=== PATIENT | male | born 1985 | race Caucasian/White ===

== ENCOUNTER → 2017-05-30 | Outpatient (CLI) | payer BC ==
[~2017-05-30] MED LIST: CEPH500C PO; REVIEWED
[2017-05-30 10:42] LABS: BASO % 0.2 %; BASO ABS # 0.01 K/uL (0-0.2); COMPLETE YES; EOS % 7.1 %; HEMATOCRIT 42.4 % (42-52); IG% 0.2 %; LYMPH % 14.3 %; MEAN CELL VOLUME 88.9 fL (80-100); MEAN CORPUSCULAR HEMOGLOBIN 30.6 pg (25-34); MEAN CORPUSCULAR HGB CONC 34.4 g/dl (32-36); MEAN PLATELET VOLUME 9.3 fL (7.4-10.4); MONO % 11.2 %; PLATELET COUNT 166 K/uL (130-400); RED BLOOD COUNT 4.77 M/uL (4.7-6.1)
[2017-05-30 11:15] LABS: ALT/SGPT 16 U/L (12-78); AST/SGOT 7 U/L (15-37); BLOOD UREA NITROGEN 14 mg/dl (7-18); BUN/CREATININE RATIO 18.5 (10-20); CALCIUM 8.9 mg/dl (8.5-10.1); CARBON DIOXIDE 31 mmol/L (21-32); CHLORIDE 105 mmol/L (98-107); CREATININE 0.78 mg/dl (0.60-1.40); GLUCOSE 74 mg/dl (70-99); POTASSIUM 4.4 mmol/L (3.5-5.1); SODIUM 140 mmol/L (136-145)
[2017-05-30 11:17] LABS: ALB/GLOB RATIO 1.2 (0.9-2); ALKALINE PHOSPHATASE 63 U/L (45-117); CHOLESTEROL 113 mg/dl (0-200); CHOLESTEROL/HDL RATIO 2.1; HDL CHOLESTEROL 53 mg/dl; LDL CHOLESTEROL CALCULATED 43 mg/dl; TRIGLYCERIDES 83 mg/dl (0-150); VERY LOW DENSITY LIPOPROT CALC 17 mg/dl
[2017-05-30 13:32] LABS: URINE APPEARANCE CLEAR (CLEAR); URINE BILIRUBIN NEG (NEG); URINE COLOR DK YELLOW; URINE NITRITE NEG (NEG); URINE PH 5.5 (4.5-7.5); URINE SPECIFIC GRAVITY 1.033 (1.000-1.030); UROBILINOGEN NEG (NEG); ZZUR CULT IF INDIC CLEAN CATCH NO
[2017-05-30 13:35] LABS: MANUAL MICROSCOPIC REQUIRED? NO; REVIEW REQ? NO
== END | disposition home or self-care (01) ==
LOC: C.LAB1850 10:08
PROVIDERS: ATTEND Nurse Practitioner Adult Health
DX: Z00.00 Encounter for general adult medical examination without abnormal findings (principal); R73.09 Other abnormal glucose; E55.9 Vitamin D deficiency, unspecified; D51.9 Vitamin B12 deficiency anemia, unspecified; R53.83 Other fatigue; M25.50 Pain in unspecified joint; R10.32 Left lower quadrant pain

== ENCOUNTER 2018-06-27 22:55 | Emergency (ER) | payer BC ==
[~2018-06-27] VITALS: Ht 185.4 cm; Wt 75.3 kg
[2018-06-27 22:57] VITALS: Ht 185.4 cm; Wt 75.3 kg
[2018-06-27] MEDS ORDERED: ONDANSETRON INJ 2 MG/ML 2 ML VIAL IV STA (23:13)
[2018-06-27] MEDS ORDERED: SODIUM CHLORIDE 0.9% 1000ML 1,000 ML IV STA (23:13)
--- NOTE | 2018-06-27 23:21 | EMERGENCY ROOM VISIT NOTE ---
History Report prepared by Yolanda: Velasquez Bassett Under the Supervision of: Dr. Tracy Silveira D.O. First contact with patient: 23:00 Chief Complaint: SHORTNESS OF BREATH Stated Complaint: SOB,FREEZING, THROWING UP, WEAK History of Present Illness The patient is a 33 year old male who presents to the Emergency Room with complaints of constant SOB beginning 2-3 days ago. Per mother, the patient has been having abdominal pain, nausea, vomiting, chills, and an occasional runny nose for the last few days. The patient states that his abdominal pain is constant and feels like a "knot." He notes that he has occasional shaking chills and feels as though his "heart is cold." He reports that he has also been having a normal bowel movement each time after he eats. The patient states that he feels as though he is dehydrated. He notes that his SOB makes him feel as though he cannot get enough air. He reports that he has been taking hot showers with no relief of his symptoms. He denies any blood in his vomit, blood in his bowels, CP, cough, and sore throat. The patient's mother states that the patient has been having similar episodes for the last ten years and she notes that he typically gets these episodes 2-3 times a year. She reports that the patient started having these episodes ten years ago after an episode of heavy drinking. The patient denies any known sick contacts, exposure to chemicals, and recent heavy drinking. He notes that he does not have any medical problems and does not take any medication regularly. He reports that he does not have a history of pneumonia, bronchitis, and heart problems. The patient states that he does not smoke cigarettes but he notes that he occasionally snorted cocaine 10-15 years ago. No IVDA. He notes that he occasionally uses marijuana. Source of History: patient, parent Onset: 2-3 days ago Position: chest Quality: other (SOB) Timing: constant Associated Symptoms: + chills, + nausea, + vomiting, + abdominal pain, No sorethroat, No cough, No chest pain Note: The patient also complains of an occasional runny nose and the need to have a bowel movement every time after he eats. He denies any blood in his vomit and blood in his bowels. Review of Systems See HPI for pertinent positives & negatives. A total of 10 systems reviewed and were otherwise negative. Past Medical & Surgical Medical Problems: (1) Back pain Family History Diabetes mellitus FHx: cancer Gallbladder disease Heart disease Hypertension Kidney disease Kidney stones Lung disease Social History Smoking Status: Current Every Day Smoker Alcohol Use: none Drug Use: marijuana Marital Status: Housing Status: lives with family Occupation Status: employed Current/Historical Medications No Active Prescriptions or Reported Meds Allergies Coded Allergies: No Known Allergies (Verified , 06/28/18) Physical Exam Vital Signs Date Time Temp Pulse Resp B/P (MAP) Pulse Ox O2 Delivery O2 Flow Rate FiO2 06/28/18 04:06 88 18 153/83 98 Room Air 06/28/18 03:36 37.1 67 18 145/93 97 Room Air 06/28/18 03:24 80 17 153/87 98 Room Air 06/28/18 02:45 61 18 147/92 99 Room Air 06/28/18 01:28 87 18 159/81 100 Room Air 06/28/18 00:32 65 18 135/83 100 Nasal Cannula 2.0 06/28/18 00:23 66 06/27/18 23:26 108 06/27/18 23:23 95 18 139/84 98 Room Air 06/27/18 23:03 98 Room Air 06/27/18 22:57 36.7 91 24 159/100 100 Room Air Physical Exam GENERAL: alert, ill appearing, well nourished, no distress, non-toxic, lying left lateral recumbent with blanket pulled up over his head EYE EXAM: normal conjunctiva, PERRL and EOM's grossly intact OROPHARYNX: no exudate, no erythema, lips, buccal mucosa, and tongue normal and mucous membranes are moist NECK: supple, no nuchal rigidity, no adenopathy, non-tender LUNGS: Clear to auscultation. Normal chest wall mechanics. Tachypnea. Decreased breath sounds at the right base. HEART: no murmurs, S1 normal and S2 normal ABDOMEN: abdomen soft, non-tender, normo-active bowel sounds, no masses, no rebound or guarding. No pulsatile mass. BACK: Back is symmetrical on inspection and there is no deformity, no midline tenderness, no CVA tenderness. SKIN: no rashes and no bruising UPPER EXTREMITIES: upper extremities are grossly normal. Full range of motion, normal pulses. LOWER EXTREMITIES: No pitting edema. Full range of motion, normal pulses. NEURO EXAM: Normal sensorium, cranial nerves II-XII grossly intact, normal speech, no gross weakness of arms, no gross weakness of legs. Medical Decision & Procedures ER Provider Diagnostic Interpretation: Radiology results have been interpreted and reviewed by me. 2 VIEW CHEST X-RAY: No cardiomegaly, effusions, focal consolidation, widened mediastinum, pulmonary edema, and pneumothorax. Right nipple piercing noted. Radiology results have been interpreted by the radiologist and reviewed by me. CT ABDOMEN & PELVIS With Contrast: Appendix not identified. Questionable structure in the lower quadrant, either small bowel loop or small fluid or distended appendix. Repeat with adequate enteric contrast to opacify the right lower quadrant, can further assess as warranted. Otherwise correlate clinically for appendicitis. No colitis or bowel obstruction. No radiodense gallstones or pancreatitis. Kidneys within normal limits. Radiologist: Chas Gayle M.D. Laboratory Results 06/27/18 23:28 Red Blood Count 5.26, Mean Corpuscular Volume 86.3, Mean Corpuscular Hemoglobin 31.2, Mean Corpuscular Hemoglobin Concent 36.1, Mean Platelet Volume 9.8, Neutrophils (%) (Auto) 90.3, Lymphocytes (%) (Auto) 8.5, Monocytes (%) (Auto) 1.1, Eosinophils (%) (Auto) 0.0, Basophils (%) (Auto) 0.0, Neutrophils # (Auto) 7.21, Lymphocytes # (Auto) 0.68, Monocytes # (Auto) 0.09, Eosinophils # (Auto) 0.00, Basophils # (Auto) 0.00 06/27/18 23:28 Test 06/27/18 23:28 06/28/18 03:05 06/28/18 03:39 White Blood Count 7.99 K/uL (4.8-10.8) Red Blood Count 5.26 M/uL (4.7-6.1) Hemoglobin 16.4 g/dL (14.0-18.0) Hematocrit 45.4 % (42-52) Mean Corpuscular Volume 86.3 fL (80-100) Mean Corpuscular Hemoglobin 31.2 pg (25-34) Mean Corpuscular Hemoglobin Concent 36.1 g/dl (32-36) Platelet Count 241 K/uL (130-400) Mean Platelet Volume 9.8 fL (7.4-10.4) Neutrophils (%) (Auto) 90.3 % Lymphocytes (%) (Auto) 8.5 % Monocytes (%) (Auto) 1.1 % Eosinophils (%) (Auto) 0.0 % Basophils (%) (Auto) 0.0 % Neutrophils # (Auto) 7.21 K/uL (1.4-6.5) Lymphocytes # (Auto) 0.68 K/uL (1.2-3.4) Monocytes # (Auto) 0.09 K/uL (0.11-0.59) Eosinophils # (Auto) 0.00 K/uL (0-0.5) Basophils # (Auto) 0.00 K/uL (0-0.2) RDW Standard Deviation 40.7 fL (36.4-46.3) RDW Coefficient of Variation 12.8 % (11.5-14.5) Immature Granulocyte % (Auto) 0.1 % Immature Granulocyte # (Auto) 0.01 K/uL (0.00-0.02) Prothrombin Time 10.4 SECONDS (9.0-12.0) Prothromb Time International Ratio 1.0 (0.9-1.1) Anion Gap 12.0 mmol/L (3-11) Est Creatinine Clear Calc Drug Dose 101.7 ml/min Estimated GFR () 102.1 Estimated GFR (Non- 88.1 BUN/Creatinine Ratio 11.8 (10-20) Calcium Level 9.8 mg/dl (8.5-10.1) Magnesium Level 1.9 mg/dl (1.8-2.4) Total Bilirubin 0.9 mg/dl (0.2-1) Aspartate Amino Transf (AST/SGOT) 13 U/L (15-37) Alanine Aminotransferase (ALT/SGPT) 17 U/L (12-78) Alkaline Phosphatase 67 U/L (45-117) Troponin I < 0.015 ng/ml (0-0.045) Pro-B-Type Natriuretic Peptide 466 pg/ml (0-450) Total Protein 9.0 gm/dl (6.4-8.2) Albumin 4.9 gm/dl (3.4-5.0) Globulin 4.1 gm/dl (2.5-4.0) Albumin/Globulin Ratio 1.2 (0.9-2) Lipase 65 U/L (73-393) Thyroid Stimulating Hormone (TSH) 0.419 uIu/ml (0.300-4.500) Ethyl Alcohol mg/dL < 3.0 mg/dl (0-3) Lyme Disease IgG Antibody NEG (NEG) Lyme Disease IgM Antibody NEG (NEG) Urine Color YELLOW Urine Appearance CLEAR (CLEAR) Urine pH 7.0 (4.5-7.5) Urine Specific [place] <= 1.005 (1.000-1.030) Urine Protein NEG (NEG) Urine Glucose (UA) NEG (NEG) Urine Ketones 1+ (NEG) Urine Occult Blood 1+ (NEG) Urine Nitrite NEG (NEG) Urine Bilirubin NEG (NEG) Urine Urobilinogen NEG (NEG) Urine Leukocyte Esterase NEG (NEG) Urine RBC 0-4 /hpf (0-4) Urine WBC 1-5 /hpf (0-5) Urine Epithelial Cells 0-5 /lpf (0-5) Urine Bacteria NEG (NEG) Urine Opiates Screen NEG (NEG) Urine Methadone, Qualitative NEG (NEG) Urine Barbiturates NEG (NEG) Urine Phencyclidine (PCP) Level NEG (NEG) Ur Amphetamine/Methamphetamine NEG (NEG) MDMA (Ecstasy) Screen NEG (NEG) Urine Benzodiazepines Screen NEG (NEG) Urine Cocaine Metabolite NEG (NEG) Urine Marijuana (THC) POS (NEG) Bedside Lactic Acid Venous 1.10 mmol/L (0.90-1.70) Laboratory results per my review. Medications Administered Medications (Trade) Dose Ordered Sig/Dread Route Start Time Stop Time Status Last Admin Dose Admin Sodium Chloride 1,000 ml @ 999 mls/hr Q1H1M STAT IV 06/27/18 23:13 06/28/18 00:13 DC 06/27/18 23:32 999 MLS/HR Ondansetron HCl (Zofran Inj) 4 mg NOW STAT IV 06/27/18 23:13 06/27/18 23:16 DC 06/27/18 23:32 4 MG Sodium Chloride 1,000 ml @ 999 mls/hr Q1H1M STAT IV 06/28/18 00:56 06/28/18 01:56 DC 06/28/18 00:56 999 MLS/HR Ondansetron HCl (ZOFRAN ODT 4MG Home Pack) 1 homepack STK-MED ONCE .ROUTE 06/28/18 03:15 06/28/18 03:16 DC 06/28/18 03:21 1 HOMEPACK ECG Per My Interpretation Indication: SOB/dyspnea Rate (beats per minute): 80 Rhythm: sinus rhythm Findings: no acute ischemic change, no ectopy, other (Normal axis, normal intervals) ED Course 2304: The patient was evaluated in room B10. A complete history and physical exam was performed. 2313: Zofran Inj 4mg IV, Sodium Chloride 1000 ml @ 999 mls/hr IV 0056: Sodium Chloride 1000 ml @ 999 mls/hr IV 0202: I reevaluated and updated the patient. He feels better and denies having any difficulty breathing while in the emergency department tonight. A repeat abdominal examination shows that the patient's abdomen is soft and nontender. The patient tolerated ice chips and has fluids running. 0315: Ondansetron HCl 1 homepack SL 0319: I rechecked the patient. He states that he is feeling well and has been able to keep water down. He denies any difficulty breathing and abdominal pain. He ambulated to the bathroom with a steady gait and is now asking to go home. 0420: Upon reevaluation, the patient is feeling better. I discussed the findings and the treatment plan with the patient. He verbalizes agreement and understanding. The patient was discharged home. Medical Decision Differential diagnosis: Etiologies such as appendicitis, diverticulitis, PUD, biliary pathology, UTI, pancreatitis, obstruction, mesenteric ischemia, aortic pathology, infections, inflammatory bowel disease, renal colic, as well as others were entertained. Patient with atypical presentation, and no clear initial etiology. Patient with multiple similar prior episodes according to patient and mom at bedside. Patient's labs reassuring. Blood cultures drawn as a precaution due to patient' s complaint of chills. No regulars witnessed while here. Initial lactic acid mildly elevated, however improved with IV fluids. Given reported nausea vomiting, suspect this is more likely elevated from dehydration and less likely from bacteremia/sepsis. CT scan reassuring and patient had no abdominal pain on initial or subsequent repeat exams. I do not suspect occult appendicitis, perforation, volvulus, diverticulitis, mesenteric ischemia, GI bleed. Patient had no difficulty breathing while here, denies shortness of breath while here, mild tachypnea improved with rest and IV fluids. Feel this was more likely tachypnea related to anxiety given his condition. Patient denies any chest pain while here. No history of IV drug abuse. I do not suspect occult endocarditis. Symptoms and presentation is not consistent with pericarditis, pericardial effusion, meningitis/encephalitis. No evidence of acute pulmonary pathology. Patient able to tolerate p.o. here and reported feeling improved. Patient ambulatory with steady gait. Repeat lactic acid improved, vital signs remained stable throughout. I do not suspect occult vascular etiology. No evidence of bowel obstruction. No evidence of biliary colic. No clear etiology of patient's symptoms, I did discuss with him this may be viral in origin. Patient admits to only occasional use of marijuana, however depending on frequency of usage there could be a component of cannabis induced hyperemesis syndrome. Patient counseled against drug abuse and smoking. Discussed with patient symptoms to watch and return for, close follow-up with his family doctor, he verbalized understanding was agreeable with plan. Medication Reconcilliation Current Medication List: was personally reviewed by me Blood Pressure Screening Patient's blood pressure: Elevated blood pressure Blood pressure disposition: Elevated BP felt to be situational Impression Primary Impression: Nausea & vomiting Additional Impressions: Abdominal pain Tobacco abuse Marijuana use Scribe Attestation The scribe's documentation has been prepared under my direction and personally reviewed by me in its entirety. I confirm that the note above accurately reflects all work, treatment, procedures, and medical decision making performed by me. Departure Information Dispostion Home / Self-Care Prescriptions No Active Prescriptions or Reported Meds Referrals No Doctor, Assigned (PCP) Forms HOME CARE DOCUMENTATION FORM, IMPORTANT VISIT INFORMATION Patient Instructions My [facility] Additional Instructions Please call and follow-up with your family doctor in 2-3 days. You may use the nausea medication as prescribed. Please sip clear liquids at frequent intervals to stay well-hydrated. You may not have a normal appetite for several days, drinking fluids is more important than eating solids. If you have any recurrent pain, recurrent vomiting, noticed diarrhea, black or bloody stools, fevers or chills, trouble breathing, chest pain, you have any other new concerns, please return to the ER. Problem Qualifiers Primary Impression: Nausea & vomiting Vomiting type: unspecified Vomiting Intractability: non-intractable Qualified Codes: R11.2 - Nausea with vomiting, unspecified Additional Impressions: Abdominal pain Abdominal location: generalized Qualified Codes: R10.84 - Generalized abdominal pain
[2018-06-27] MEDS ORDERED: OPTIRAY 320 IV PRN (23:30)
[2018-06-27 23:40] LABS: HEMATOCRIT 45.4 % (42-52); HEMOGLOBIN 16.4 g/dL (14.0-18.0); IG# 0.01 K/uL (0.00-0.02); LYMPH % 8.5 %; LYMPH ABS # 0.68 K/uL (1.2-3.4); MEAN CELL VOLUME 86.3 fL (80-100); MEAN CORPUSCULAR HEMOGLOBIN 31.2 pg (25-34); MEAN CORPUSCULAR HGB CONC 36.1 g/dl (32-36); MEAN PLATELET VOLUME 9.8 fL (7.4-10.4); MONO % 1.1 %; MONO ABS # 0.09 K/uL (0.11-0.59); NEUT % 90.3 %; NEUT ABS # 7.21 K/uL (1.4-6.5); PLATELET COUNT 241 K/uL (130-400); RED CELL DISTRIBUTION WIDTH CV 12.8 % (11.5-14.5); RED CELL DISTRIBUTION WIDTH SD 40.7 fL (36.4-46.3); WHITE BLOOD COUNT 7.99 K/uL (4.8-10.8)
[2018-06-28 00:09] LABS: ALBUMIN 4.9 gm/dl (3.4-5.0); ALKALINE PHOSPHATASE 67 U/L (45-117); ALT/SGPT 17 U/L (12-78); AST/SGOT 13 U/L (15-37); BLOOD UREA NITROGEN 13 mg/dl (7-18); CALCIUM 9.8 mg/dl (8.5-10.1); CARBON DIOXIDE 22 mmol/L (21-32); CREATININE 1.09 mg/dl (0.60-1.40); GLUCOSE 156 mg/dl (70-99); LIPASE 65 U/L (73-393); POTASSIUM 3.9 mmol/L (3.5-5.1); SODIUM 137 mmol/L (136-145)
[2018-06-28] MEDS ORDERED: SODIUM CHLORIDE 0.9% 1000ML 1,000 ML IV STA (00:56)
[2018-06-28] MEDS ORDERED: ONDANSETRON HOME PACK 4MG OD TAB ONE (03:15)
[2018-06-28 03:36] VITALS: TEMP 37.1
[2018-06-28 04:06] VITALS: BP 153/83; PULSE 88; O2SAT 98
--- NOTE | 2018-06-28 07:10 | DIAGNOSTIC IMAGING REPORT ---
ABD/PELVIS IV CONTRAST ONLY CLINICAL HISTORY: 33 years-old Male presenting with abd pain, n/v, f/c. TECHNIQUE: Multidetector CT of the abdomen and pelvis was performed after the administration of intravenous contrast. IV contrast: 94 mL of Optiray 320. A dose lowering technique was used consistent with the principles of ALARA (as low as reasonably achievable). COMPARISON: Plain radiograph of the abdomen from 2014. CT DOSE (mGy.cm): The estimated cumulative dose is 451.18 mGycm. FINDINGS: Motion artifact mildly degrades image quality negatively affecting diagnostic sensitivity the exam. [employer] Tax [employer] topogram: Unremarkable. Lung bases: Lungs and pleural spaces clear. Normal heart size. No pericardial or pleural effusion. Liver: Normal morphology. No liver lesion. Patent hepatic vasculature. Biliary: No intrahepatic or extrahepatic biliary ductal dilatation. Normal gallbladder. Pancreas: Normal. Spleen: Normal. Adrenal glands: Normal. Kidneys and ureters: Normal. No hydronephrosis. Bladder: Normal. Pelvic organs: The prostate is enlarged. Seminal vesicles also appear distended. Bowel: The most likely candidate for the appendix is located in the right iliac fossa and is mildly dilated measuring 8 mm in diameter (series 3 image 267). No significant periappendiceal inflammatory change or associated fluid. No bowel obstruction. No gross evidence of wall thickening of the large or small bowel. Peritoneal cavity: No free fluid or intraperitoneal gas. Lymph nodes: No enlarged lymph nodes in the abdomen or pelvis. Vasculature: Aorta and IVC patent and normal in caliber. Abdominal wall: Normal. Musculoskeletal: Normal. IMPRESSION: 1. Motion artifact mildly degrades image quality negatively affecting the diagnostic sensitivity the exam. Allowing for this and the result in difficulty in identifying confidently and characterizing the appendix, the appendix appears mildly dilated, although there is no overwhelming evidence of periappendiceal inflammatory change or fluid in the right lower quadrant. The location of the appendix in the right iliac fossa would be amenable to ultrasound follow-up. 2. Apparent prostatic enlargement. Correlate with urinalysis and digital rectal exam to exclude prostatitis. Electronically signed by: Mynor Larkin M.D. 06/28/2018 7:08 AM Dictated Date/Time: 06/28/2018 6:58 AM
--- NOTE | 2018-06-28 08:09 | DIAGNOSTIC IMAGING REPORT ---
CHEST 2 VIEWS ROUTINE HISTORY: Short of breath. COMPARISON: Chest 12/14/2013. FINDINGS: The lungs are clear. Cardiac silhouette is normal in size. No pleural effusions. No pneumothorax. IMPRESSION: No acute process. Electronically signed by: Yakov Tapia M.D. 06/28/2018 8:07 AM Dictated Date/Time: 06/28/2018 8:05 AM
--- NOTE | 2018-07-03 06:44 | EDITING REQUIRED CODING QUERY ---
CODING QUERY To promote full compliance with coding requirements relating to patient care, provider participation is requested in all cases of hcc coders uncertainty. Please assist us with the question(s) below: Coding Question(s): The HPI states that the patient does not smoke cigarettes but the Social History states he is an everyday smoker and Tobacco Abuse is listed as a diagnosis under the Impression. Please clarify documentation. Physician's Response(s): That was an error. I made an addendum to the chart. He is an everyday smoker. Thank you Maryanne Belcher Principal Diagnosis: "_that condition established after study, to be chiefly responsible for occasioning the admission of the patient to the hospital for care." Co-Existing Principal Diagnosis: "_when two or more diagnoses equally meet the criteria for principal diagnosis as determined by the circumstances of admission, diagnostic work up, and/or therapy provided, and the Alphabetic Index, Tabular List, or another coding guideline does not provide sequencing direction, any one of the diagnoses may be sequenced first." "When the physician has documented what appears to be a current diagnosis in the body of the record, but has not included the diagnosis in the final diagnostic statement, the physician should be asked whether the diagnosis should be added." (Source Coding [facility] 2 QTR90. p3-4)
--- NOTE | 2018-07-03 18:53 | Pharmacy Progress Note ---
ED Pharmacist Culture FollowUp Date of Service: Jul 03, 2018. 1 of 2 BLCXs is growing gram positive bacilli. Pt states he is feeling well and that his symptoms resolved after ~ 24 hours. He denies abd pain, NV, fever and chills. Reviewed case w/ Dr Sanchez. This cx is likely contaminated. Will continue to monitor cx results but no immediate action required.
--- NOTE | 2018-07-06 12:55 | Pharmacy Progress Note ---
ED Pharmacist Culture FollowUp Date of Service: Jul 06, 2018. 1 of 2 BLCXs is growing gram positive bacilli - contacted lab as final ID still pending. Aicha in [facility] stated the organism has not yet been ID'd but currently resembles propionibacterium (which would likely represent a skin malachi contaminant). No action required at this time. On 07/03/18: Pt states he is feeling well and that his symptoms resolved after ~ 24 hours. He denies abd pain, NV, fever and chills. Reviewed case w/ Dr Sanchez. This cx is likely contaminated. Will continue to monitor cx results but no immediate action required.
== END 2018-06-28 04:30 | disposition home or self-care (01) ==
LOC: C.EDB 22:56
DX: R11.2 Nausea with vomiting, unspecified (principal); R10.9 Unspecified abdominal pain; F12.90 Cannabis use, unspecified, uncomplicated; F17.200 Nicotine dependence, unspecified, uncomplicated; R03.0 Elevated blood-pressure reading, without diagnosis of hypertension; R68.83 Chills (without fever); E86.0 Dehydration; R06.82 Tachypnea, not elsewhere classified; R74.0 Nonspecific elevation of levels of transaminase and lactic acid dehydrogenase [LDH]; Z83.79 Family history of other diseases of the digestive system